=== PATIENT | male | born 1955 | race Caucasian/White ===

== ENCOUNTER → 2021-08-04 | Outpatient (CLI) | payer OTHER ==
--- NOTE | 2021-08-04 08:58 | KCIC ---
EXAM: CT coronary artery calcium screening; radiologist over read. HISTORY: Coronary artery calcium screening. Family history of heart disease. Diabetes. Hyperlipidemia . TECHNIQUE: Computed tomographic images of the chest were obtained without contrast. Multiplanar refor matting was performed. *One or more of the following individualized dose reduction techniques were utilized for this examina tion: 1. Automated exposure control. 2. Adjustment of the mA and/or kV according to patient size. 3. Use of iterative reconstruction technique. COMPARISON: None. FINDINGS: There is cardiomegaly. There is calcified atherosclerotic plaque involving the coronary art eries. There is no lymphadenopathy. There is no pneumothorax or pleural effusion. There is a 3 mm latricia undglass opacity within the lateral right lower lobe. There are 2 mm pleural-based nodular opacities within the lateral right lower lobe. There is a 1 mm pleural-based nodular opacity within the posteri or lateral left lower lobe. There is no acute finding involving the upper abdomen or osseous structur es. Coronary artery calcium score: Left main artery - 0 Left anterior descending - 2690 Left circumflex - 0.9 Right coronary artery - 1149.7 Posterior descending artery - 0 TOTAL = 3040.6 IMPRESSION: 1. Severely calcified atherosclerotic plaque involving the coronary arteries. The coronary artery ivone cium score is 3040.6. There is a large amount of plaque. There is a high risk for a cardiovascular ev ent. 2. Tiny bilateral pulmonary nodules, the largest of which is a 3 mm groundglass nodule within the rig ht lower lobe. These are likely benign. Follow-up can be performed in one year if there are risk fact ors for for neoplasm. Electronically signed by: Salima Rodriguez MD (08/04/2021 8:55 AM) [id number]
== END ==
LOC: KCIC CT 08:10
PROVIDERS: ATTEND Family Medicine
DX: Z13.6 Encounter for screening for cardiovascular disorders (principal); I51.7 Cardiomegaly; I25.10 Atherosclerotic heart disease of native coronary artery without angina pectoris; R91.8 Other nonspecific abnormal finding of lung field
CPT/HCPCS: 75571

== ENCOUNTER 2021-10-17 08:05 | Emergency (ER) | payer OTHER ==
[~2021-10-17] VITALS: Ht 185.4 cm; Wt 94.8 kg
--- NOTE | 2021-10-17 08:26 | PHYS DOC ---
Past Medical History Past Medical History: Hypertension Smoking Status: Never Smoker Alcohol Use: None Drug Use: None General Adult EDM: Chief Complaint: FLU SYMPTOM HPI: HPI: Patient is a 65 year old male who presents with several days of generalized fatigue and malaise. He reports a mild, dry cough. He denies dyspnea. He den ies hemoptysis. He reports he has had greater than 2 months of left-sided chest pain, unchanged today. He reports that it feels dull. No radiation of pain. No dizziness or diaphoresis. No nausea or vomiting. No abdominal pain. He has seen his PCP for this, and he is seeing cardiology this week for this. He denies lower extremity pain or swelling. He denies recent surgery, hospitalization, travel history. He denies having a documented fever. He has had some chills. He has been vaccinated against influenza and Covid, including booster injection. He reports that he just does not feel well. Review of Systems: Review of Systems: Constitutional: Denies fever or chills. [] Eyes: Denies change in visual acuity. [] HENT: Denies nasal congestion or sore throat. [] Respiratory: Reports dry cough. Denies dyspnea. Cardiovascular: Reports unchanged left-sided chest pain, as in HPI. No peripheral edema. GI: Denies abdominal pain, nausea, vomiting, diarrhea : Denies Esequiel symptoms. Musculoskeletal: Denies back pain or joint pain. Does report some diffuse, mi ld myalgias. Integument: Denies rash. [] Neurologic: Denies headache, focal weakness or sensory changes. [] Endocrine: Denies polyuria or polydipsia. [] Lymphatic: Denies swollen glands. [] Psychiatric: Denies depression or anxiety. [] Heart Score: C/O Chest Pain: Yes HEART Score for Chest Pain: HEART Score for Chest Pain Response (Comments) Value History Slighlty/Non-Suspicious 0 ECG Nonspecific Repolarizatio 1 Age >45 - < 65 1 Risk Factors 1 or 2 Risk Factors 1 Troponin < Normal Limit 0 Total 3 Risk Factors: Risk Factors: DM, Current or recent (<one month) smoker, HTN, HLP, family history of CAD, obesity. Risk Scores: Score 0 - 3: 2.5% MACE over next 6 weeks - Discharge Home Score 4 - 6: 20.3% MACE over next 6 weeks - Admit for Clinical Observation Score 7 - 10: 72.7% MACE over next 6 weeks - Early Invasive Strategies Allergies: Allergies: Allergies Coded Allergies Type Severity Reaction Last Updated Verified No Known Drug Allergies 10/17/21 No Physical Exam: PE: Constitutional: Well developed, well nourished, no acute distress, non-toxic appearance. [] HENT: Normocephalic, atraumatic, oropharynx is patent and clear. Mucous membranes are moist. Eyes: PERRL, EOMI, conjunctiva normal, no discharge. Sclera are clear and anicteric. Neck: Normal range of motion, no tenderness, supple, no stridor. No JVD. Trachea is midline Cardiovascular:Heart rate regular rhythm, +2 radial and posterior tibial pulses bilaterally. Lungs & Thorax: Bilateral breath sounds clear to auscultation, no rales, rhonchi or wheezes. Equal chest rise. No evidence of distress. Abdomen: Abdomen soft, nondistended, nontender to palpation. Skin: Warm, dry, no erythema, no rash. [] Back: No deformity, full range of motion. Extremities: No tenderness, no cyanosis, no clubbing, ROM intact, no edema. No calf tenderness. Neurologic: Alert and oriented X 3, normal motor function, normal sensory function, no focal deficits noted. [] Psychologic: Affect normal, judgement normal, mood normal. [] EKG: EKG: EKG is interpreted at 0837 Rhythm is sinus Rate is 76 bpm [place] is left No STEMI Radiology/Procedures: Radiology/Procedures: IMAGING REPORT Signed PATIENT: SILVIA LAUREANO AACCOUNT: [id number] : 1955 LOCATION: ER AGE: 65 SEX: M EXAM STATUS: PRE ER ORD. PHYSICIAN: JAY CAMPUZANO DO REASON: cough, chest pain PROCEDURE: PORTABLE CHEST 1V EXAM: Chest, single view. HISTORY: Cough. Chest pain. COMPARISON: 04/06/2015 FINDINGS: A frontal view of the chest is obtained. There is no infiltrate, pleural effusion or pneumothorax. The heart is normal in size. IMPRESSION: No acute pulmonary finding. Electronically signed by: Salima Cid MD (10/17/2021 9:08 AM) [id number] DICTATED and SIGNED BY: SALIMA CID MD DATE: 10/17/21 [id number] 0 Course & Med Decision Making: Course & Med Decision Making Pertinent Labs and Imaging studies reviewed. (See chart for details) IV fluid normal saline boluses given. He is resting comfortably. He is hemodynamically stable. He is manifesting no evidence of distress. Emergency department work-up is unremarkable for any acute life-threatening process. He has mild hyponatremia, likely from some mild he dehydration. There is no current indication for further invasive exams, imaging or admission at this time, based on current presentation. He reports that he actually had an appointment with cardiology today, but he missed this appointment to come to the ED. This is the second time he has missed the cardiology appointment. I have strongly encouraged him to call them and contact them and reschedule this appointment. I agree that he does need formal cardiology consultation, though there is not appear to be an indication for emergency cardiology consultation at present. He verbalizes understanding. [place] Disclaimer: [place] Disclaimer: This electronic medical record was generated, in whole or in part, using a voice recognition dictation system. Departure Departure Impression: Primary Impression: Malaise and fatigue Additional Impressions: Cough Atypical chest pain Disposition: 01 HOME / SELF CARE / HOMELESS Condition: STABLE Referrals: Abelino MAGAÑA MD (PCP) Patient Instructions: Chest Pain (Nonspecific), Fatigue Additional Instructions: Return to the ER for more severe chest pain, coughing up blood, more severe shortness of breath, uncontrolled vomiting, dehydration, focal weakness, fall, injury or trauma or any other concerns. Please stay well-hydrated. Eat a bland diet. Please contact your director pharmacology to reschedule your appointment. Contact your primary care physician for follow-up as well. Scripts Ondansetron Hcl (ZOFRAN) 4 Mg Tablet 4 MG PO PRN TID PRN for VOMITING, #25 TAB nausea/vomiting Prov: JAY CAMPUZANO DO 10/17/21 JAY CAMPUZANO DO Oct 17, 2021 08:26
[2021-10-17] MEDS ORDERED: IV NORMAL SALINE 1000ML BAG 1,000 ML IV ONE (08:45)
[2021-10-17 09:00] LABS: HEMOGLOBIN 12.1 g/dL (13.0-17.5); RED BLOOD COUNT 4.18 x10^6/uL (4.30-5.70); RED CELL DISTRIBUTION WIDTH 13.9 % (11.5-14.5); WHITE BLOOD COUNT 11.3 x10^3/uL (4.0-11.0)
[2021-10-17 09:09] LABS: CALCIUM 8.3 mg/dL (8.5-10.1); CREATININE 0.6 mg/dL (0.7-1.3); GFR 135.6
--- NOTE | 2021-10-17 09:10 | RAD ---
EXAM: Chest, single view. HISTORY: Cough. Chest pain. COMPARISON: 04/06/2015 FINDINGS: A frontal view of the chest is obtained. There is no infiltrate, pleural effusion or pneumo thorax. The heart is normal in size. IMPRESSION: No acute pulmonary finding. Electronically signed by: Salima Rodriguez MD (10/17/2021 9:08 AM) [id number]
[2021-10-17 09:14] LABS: ALBUMIN 2.8 g/dL (3.4-5.0); ALBUMIN/GLOBULIN RATIO 0.8 (1.0-1.7); PHOSPHORUS 2.9 mg/dL (2.6-4.7); TOTAL BILIRUBIN 0.6 mg/dL (0.2-1.0); TOTAL PROTEIN 6.5 g/dL (6.4-8.2)
--- NOTE | 2021-10-17 09:22 | EKG ---
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
[2021-10-17 10:17] LABS: INFLUENZA A PATIENT NEGATIVE (NEGATIVE); INFLUENZA B PATIENT NEGATIVE (NEGATIVE)
[2021-10-17] MEDS ORDERED: ONDA4TAB7 PO (11:13)
[2021-10-17 11:25] VITALS: BP 166/79
--- NOTE | 2021-10-18 17:06 | NUR ---
IP:Attempted to contact pt concerning covid results. states pt at work. Informed her to have pt call me.
--- NOTE | 2021-10-19 08:28 | NUR ---
IP: Pt returned my call. Informed him of positive covid test and the need to quarantine for 10 days. Pt verbalized understanding.
== END 2021-10-17 11:44 | disposition home or self-care (01) ==
LOC: ER 08:05
DX: R53.81 Other malaise (principal); Z20.822 Contact with and (suspected) exposure to COVID-19; R53.83 Other fatigue; R05.9 Cough, unspecified; R07.89 Other chest pain
CPT/HCPCS: 36415; 71045; 80053; 83690; 83735; 84100; 84484; 85027; 87426; 87804; 93005; 96360; 99285; J7030; U0003; U0005

== ENCOUNTER → 2021-10-23 | Outpatient (CLI) | payer OTHER ==
[2021-10-17 11:25] VITALS: BP 166/79
[~2021-10-23] MED LIST: ONDA4TAB7 PO
--- NOTE | 2021-10-23 09:00 | RAD ---
EXAM: ULTRASOUND SOFT TISSUE NECK CLINICAL HISTORY: Reason: PALPABLE NODULE NECK COMPARISON: None available. TECHNIQUE: Ultrasound examination of the right neck was performed FINDINGS: Submental lymph nodes are identified within the right neck measuring up to 1.4 cm x 0.6 cm. There is normal cortical thickness and fatty hilum identified. Cortical thickness measures up to 3 mm. No cyst ic changes or abscess identified. IMPRESSION: Morphologically normal lymph nodes are identified measuring up to 0.6 cm in short axis within the rama ged right neck. Imaging follow-up could be based on clinical findings or persistent clinical concern if there is lack of resolution. Electronically signed by: Angie Lujan MD (10/23/2021 8:57 AM) [id number]
== END ==
LOC: US 06:28
PROVIDERS: ATTEND Family Medicine
DX: R22.1 Localized swelling, mass and lump, neck (principal)
CPT/HCPCS: 76536

== ENCOUNTER → 2021-11-13 | Outpatient (CLI) | payer OTHER ==
[2021-10-17 11:25] VITALS: BP 166/79
--- NOTE | 2021-11-13 17:07 | CARD ---
MR#: [id number] Date of Study: 11/13/2021 Ordering Physician: Nafisa MAGAÑA, Referring Physician: Nafisa MAGAÑA, Tech: Jami Baez, [facility] APPROVED REPORT EXAM: Two-dimensional and M-mode echocardiogram with Doppler and color Doppler. Other Information Quality : AverageHR: 68bpm INDICATION Fatigue RISK FACTORS Hypertension Diabetes 2D DIMENSIONS Left Atrium(2D)3.3 (1.6-4.0cm)IVSd1.4 (0.7-1.1cm) Aortic Root(2D)3.9 (2.0-3.7cm)LVDd4.4 (3.9-5.9cm) LVOT Diameter2.1 (1.8-2.4cm)PWd1.3 (0.7-1.1cm) LVDs3.4 (2.5-4.0cm)FS (%) 22.8 % SV41.3 mlLVEF(%)46.0 (>50%) Aortic Valve AoV Peak Shawn.122.6cm/sAoV VTI24.3cm AO Peak GR.6.0mmHgLVOT Peak Shawn.101.9cm/s LVOT VTI 23.01cmAO Mean GR.3mmHg ZAID (VMAX)2.52ej9HST (VTI)3.28cm2 Mitral Valve MV E Xqlwejzf40.2cm/sMV DECEL [id number] MV A Ufubxtna58.3cm/sMV E Mean Gr.1mmHg MV WGY45ylU/A Ratio0.7 MVA (PHT)2.54cm2 TDI E/Lateral E'7.1E/Medial E'11.3 Pulmonary Valve PV Peak Twrpyruj27.0cm/sPV Peak Grad.3mmHg Tricuspid Valve TR P. Cwyqnojo793hk/sRAP MIVDSPHU7oyDr TR Peak Gr.05rxYeEOMD02qrUx Pulmonary Vein S1 Fndqsker07.4cm/sD2 Nbwimayt55.3cm/s PVa tljqtupo082cmuw LEFT VENTRICLE The left ventricle is normal size. There is mild to moderate concentric left ventricular hypertrophy. The left ventricular systolic function is normal. The Ejection Fraction is 55-60%. There is normal L V segmental wall motion. Transmitral Doppler flow pattern is Grade I-abnormal relaxation pattern. RIGHT VENTRICLE The right ventricle is normal size. There is normal right ventricular wall thickness. The right ventr icular systolic function is normal. ATRIA The left atrium size is normal. The right atrium is borderline dilated. The interatrial septum is int act with no evidence for an atrial septal defect or patent foramen ovale as noted on 2-D or Doppler i maging. AORTIC VALVE The aortic valve is normal in structure and function. Doppler and Color Flow revealed trace aortic re gurgitation. There is no significant aortic valvular stenosis. Calculated aortic valve area is 2.99 c m2 with maximum pressure gradient of 8 mmHg and mean pressure gradient of 4 mmHg. MITRAL VALVE The mitral valve is normal in structure and function. There is no evidence of mitral valve prolapse. There is no mitral valve stenosis. Doppler and Color-flow revealed trace mitral regurgitation. TRICUSPID VALVE The tricuspid valve is normal in structure and function. Doppler and Color Flow revealed trace tricus pid regurgitation with an estimated PAP of 31 mmHg. There is no tricuspid valve stenosis. PULMONIC VALVE The pulmonary valve is normal in structure and function. Doppler and Color Flow revealed no pulmonic valvular regurgitation. GREAT VESSELS The aortic root is mildly enlarged measuring 4.28 cm. The IVC is normal in size and collapses >50% wi th inspiration. PERICARDIAL EFFUSION There is no evidence of significant pericardial effusion. Critical Notification Critical Value: No <Conclusion> The left ventricular systolic function is normal. The Ejection Fraction is 55-60%. There is normal LV segmental wall motion. Transmitral Doppler flow pattern is Grade I-abnormal relaxation pattern. Trace mitral regurgitation. Trace tricuspid regurgitation with an estimated PAP of 31 mmHg. There is no evidence of significant pericardial effusion. Signed by : Addison Estrada, Electronically Approved : 11/13/2021 17:07:04
== END ==
LOC: ECHO 09:44
PROVIDERS: ATTEND Family Medicine
DX: I51.7 Cardiomegaly (principal); R53.82 Chronic fatigue, unspecified
CPT/HCPCS: 93306

== ENCOUNTER 2021-11-27 06:36 | Outpatient (CLI) | payer OTHER ==
[~2021-11-27] VITALS: Ht 185.4 cm; Wt 91.0 kg
[2021-11-27] VITALS (16 sets, daily range): BP systolic 158–191; BP diastolic 65–87
[2021-11-27] MEDS ORDERED: IODIXANOL 320 MG/ML 100 ML VIAL. ONE ×2 (07:54→09:08)
[2021-11-27] MEDS ORDERED: LIDOCAINE 1% Multi-Dose 20 ML VIAL. ONE (07:54)
[2021-11-27 07:57] LABS: HEMATOCRIT 36.5 % (39.0-53.0); HEMOGLOBIN 12.1 g/dL (13.0-17.5); RED BLOOD COUNT 4.19 x10^6/uL (4.30-5.70); RED CELL DISTRIBUTION WIDTH 15.4 % (11.5-14.5); WHITE BLOOD COUNT 8.5 x10^3/uL (4.0-11.0)
[2021-11-27] MEDS ORDERED: SIMV40TA18 PO (08:00)
[2021-11-27] MEDS ORDERED: INSU100C4 SQ (08:00)
[2021-11-27] MEDS ORDERED: CARV25TA2 PO (08:00)
[2021-11-27] MEDS ORDERED: OXYB5TAB10 PO (08:00)
[2021-11-27] MEDS ORDERED: OMEP20CA16 PO (08:00)
[2021-11-27] MEDS ORDERED: MULT-245 PO (08:00)
[2021-11-27] MEDS ORDERED: FERR-36 PO (08:00)
[2021-11-27] MEDS ORDERED: DULO60CA7 PO (08:00)
[2021-11-27] MEDS ORDERED: ASPI-630 PO (08:00)
[2021-11-27] MEDS ORDERED: INSU100I13 SQ (08:00)
[2021-11-27] MEDS ORDERED: EZET10TA20 PO (08:00)
[2021-11-27] MEDS ORDERED: GABA300C18 PO (08:00)
[2021-11-27] MEDS ORDERED: MIDAZOLAM HCL/PF 5 MG/5 ML VIAL. ONE (08:11)
[2021-11-27] MEDS ORDERED: fentaNYL PF VIAL 100 MCG/2 ML VIAL ONE (08:11)
[2021-11-27 08:14] LABS: PROTHROMBIN TIME PATIENT 11.7 SEC (11.7-14.0)
[2021-11-27 08:19] LABS: CALCIUM 8.4 mg/dL (8.5-10.1); CREATININE 0.8 mg/dL (0.7-1.3); POTASSIUM 4.4 mmol/L (3.5-5.1)
[2021-11-27] MEDS ORDERED: BIVALIRUDIN 250 MG VIAL. IV ONE ×2 (08:59→09:30)
[2021-11-27] MEDS ORDERED: CONTRAST GIVEN. MC PRN (09:00)
[2021-11-27] MEDS ORDERED: MIDAZOLAM HCL/PF 5 MG/5 ML VIAL. IV ONE (09:00)
[2021-11-27] MEDS ORDERED: fentaNYL PF VIAL 100 MCG/2 ML VIAL IV ONE (09:00)
[2021-11-27] MEDS ORDERED: LIDOCAINE 1% Multi-Dose 20 ML VIAL. INJ ONE (09:00)
[2021-11-27] MEDS ORDERED: IODIXANOL 320 MG/ML 100 ML VIAL. IART ONE (09:00)
[2021-11-27] MEDS ORDERED: ADENOSINE 90 MG/30 ML VIAL. IV ONE (09:08)
[2021-11-27] MEDS ORDERED: ASPIRIN 325 MG TABLET PO ONE (09:30)
[2021-11-27] MEDS ORDERED: ADENOSINE 90 MG in IV NORMAL SALINE 50ML 90 ML IV ONE (09:30)
[2021-11-27] MEDS ORDERED: CLOPIDOGREL BISULFATE 75 MG TABLET PO ONE (09:30)
[2021-11-27] MEDS ORDERED: CLOPIDOGREL BISULFATE 75 MG TABLET ONE (09:31)
[2021-11-27] MEDS ORDERED: ASPIRIN 325 MG TABLET ONE (09:31)
--- NOTE | 2021-11-27 09:47 | PDOC ---
MODERATE SEDATION ASSESSMENT RISKS/ALTERNATIVES Risks/Alternatives Risks and alternatives of this type of sedation and procedure discussed with: RISK/ALTERNATIVES: Patient H & P ON CHART H & P H & P on chart and reviewed for co-morbid conditions and appropriate labs. H&P ON CHART: Yes STATUS PREG STATUS ASSESSED: N/A MEDS/ALLERGIES REVIEWED Meds/Allergies Reviewed Medications and Allergies including time and route of recently administered narcotics and sedatives. MEDS/ALLERGIES REVIEWED: Yes ASA RATING ASA RATING: III AIRWAY ASSESSMENT Airway Assessment Airway patency, oral function limitations, presence of caps, crowns, dentures, partials, and ability to extend neck assessed. AIRWAY ASSESSMENT: Yes MALLAMPATI SCORE MALLAMPATI SCORE: II PRE-SEDATION ASSESSMENT PRE-SEDATION ASSESSMENT: Yes EDITH HUERTA MD Nov 27, 2021 09:47
[2021-11-27] MEDS ORDERED: NITROGLYCERIN SUBLINGUAL 0.4 MG BOTTLE OF 25. SL PRN (10:00)
[2021-11-27] MEDS ORDERED: ACETAMINOPHEN 325 MG TABLET. PO PRN (10:00)
--- NOTE | 2021-11-27 10:12 | CARD ---
MR#: [id number] Date of Study: 11/27/2021 Ordering Physician: EDITH ESTRADA, Referring Physician: EDITH ESTRADA Tech: RT Michelle(R) APPROVED REPORT Technologist: RT Michelle(R) Nurse: Divya Sanders RN Procedure(s) performed: 1. Right and left heart catheterization and selective coronary angiography 2. Instantaneous wave free ratio (IFR) and fractional flow reserve (FFR) measurement to left anterio r descending artery stenosis 3. Successful PCI/drug-eluting stent placement to the left circumflex artery MODERATE SEDATION TIME: 82 MINS FLUORO TIME: 8.7 MIN DOSE: 95.8 GYCM2 CONTRAST: 159CC VISI INDICATION The indication(s) include : Refractory dyspnea on minor exertion and chest pressure concerning for un stable angina. [facility] Clinical Frailty Scale [facility] Clinical Frailty Scale: Managing Well Heart Failure Heart Failure: No CASE TECHNIQUE IV conscious sedation was used throughout procedure with appropriate monitoring and was performed in the presence of a registered nurse who was an independent trained observer other than the physician p erforming the procedure. During this case, Fluoroscopy and low osmolar contrast were used for imaging . Specimen(s) Removed: No Estimated Blood loss: 20 cc's. PROCEDURE NARRATIVE After explaining the risk, benefits and alternative options, informed consent was obtained from patie nt. Patient was brought to the cardiac Pan [employer]ulcan[employer] Helper and his right groin was prepped and draped in the us ual fashion. 20 cc of 2% lidocaine was infiltrated into the skin and subcutaneous tissues for local anesthesia. Arterial and venous accesses were obtained in the right common femoral artery and vein r espectively and 6 and 8 Israeli sheaths inserted. A 7.5 Israeli [place] catheter was then advanced u nder fluoroscopic guidance and intracardiac pressures, oxygen saturations and cardiac output by Oral method measured. Subsequently, 6 Israeli JL4 and 6 Israeli JR4 catheters were used to perform selectiv e angiography of the left and right coronary arteries. LVEDP and transaortic gradients were measured . Left ventriculography was not performed due to contrast used for intervention and availability of recent 2D echo that showed LVEF 55%. Since patient was found to have angiographically borderline significant stenosis involving the left a nterior ascending artery, a decision was made to assess the physiologic significance using instantane ous wave free ratio (IFR) measurement. The left main coronary artery was engaged with a 6 Israeli XB 3.5 guide catheter and the stenosis in the mid to distal segment of the left anterior descending sangeeta ry was crossed with a [employer] pressure wire. iFR measurement was made there was borderline significant at 0.89 and 0.90. Hence we decided to evaluate this further with fractional flow reserve (FFR) measurement. Patient was given intravenous adenosine infusion per protocol and FFR was measur ed which came back insignificant at 0.86. Hence no intervention was performed on the LAD stenosis. FINDINGS A. RUGHT HEART CATHETERIZATION 1. Intracardiac pressures: Mean right atrial pressure 4 mmHg, right ventricular pressure 28/2 mmHg, pulmonary artery pressure 27/7 mmHg, mean pulmonary capillary wedge pressure 15 mmHg. No significant pulmonary hypertension noted. 2. Oxygen saturations: Right atrium 75.9%, pulmonary artery 72.8%, femoral arterial sheath 96%. No evidence of intracardiac shunt. 3. Cardiac output by Oral method 6.7 L/min. B. LEFT HEART CATHETERIZATION 1. Hemodynamics: Left ventricular end-diastolic pressure 16 mmHg. No pullback gradient across aorti c valve. 2. Coronary angiography: a. The left main coronary artery arose from the left sinus of Valsalva, gave rise to the left anteri or descending and left circumflex arteries and did not show any significant stenosis. b. The left anterior descending artery showed 50 to 60% stenosis involving the mid to distal segment that was physiologically insignificant based on FFR measurement of 0.86. c. The left circumflex artery showed 80% stenosis in the proximal segment. d. The right coronary artery was a large and dominant vessel arising from the right sinus of Valsalv a that did not show any significant stenosis. INTERVENTION The left main coronary artery was engaged with 6 Israeli XB 3.5 guide catheter. The stenosis in the p roximal segment of the left circumflex artery was crossed with the pressure wire was used to perform FFR measurement on LAD. The lesion was then predilated with a 3.0 x 15 mm Euphora balloon following which it was successfully treated with 3.0 x 16 mm [employer] Promus Elite drug-eluting stent. Follow-up angiography showed resolution of the stenosis to 0% with KARLA-3 distal flow. Patient christiano erated the procedure well. Hemostasis was achieved using Mynx closure device and manual compression. There were no immediate complications KARLA Flow KARLA Flow (Pre-Intervention): KARLA-3 KARLA Flow (Post-Intervention): KARLA-3 Conclusion 1. Two-vessel coronary artery disease. 80% stenosis involving the left circumflex artery. 50 to 60 % stenosis involving the left anterior descending artery that was physiologically insignificant based on FFR measurement of 0.86. 2. Successful PCI/drug-eluting stent placement to the left circumflex artery. 3. No significant pulmonary hypertension, no evidence of intracardiac shunt. Recommendations 1. Aspirin 325 mg daily for 1 month followed by 81 mg daily 2. Plavix 75 mg daily 3. Cardiovascular risk factor modification Signed by : Edith Estrada, Electronically Approved : 11/27/2021 10:12:21
[2021-11-27] MEDS ORDERED: IV 1/2 NORMAL SALINE 1,000 ML IV SCH (11:00)
[2021-11-27] MEDS ORDERED: CLOP75TA PO (13:40)
--- NOTE | 2021-11-27 14:06 | NUR ---
Discharge Note: SILVIA LAURENAO ACCLeticia Discharge instructions and discharge home medications reviewed with Patient and daughter and a copy given. All questions have been answered and understanding verbalized. The following instructions and handouts were given: Moderate sedation, groin site care, and plavix information. Discontinued lines and drains: Left hand IV dc'd, tip intact, and bandage applied. Patient discharged to home with daughter via personal vehicle.
[2021-11-27] MEDS ORDERED: ATORVASTATIN CALCIUM 40 MG TABLET. PO SCH (21:00)
[2021-11-28] MEDS ORDERED: ASPIRIN ENTERIC COATED 325 MG TABLET.DR. PO SCH (08:00)
[2021-11-28] MEDS ORDERED: CLOPIDOGREL BISULFATE 75 MG TABLET PO SCH (08:00)
== END 2021-11-27 14:20 | disposition home or self-care (01) ==
LOC: CCL 06:36
PROVIDERS: ATTEND Internal Medicine Cardiovascular Disease
DX: R06.09 Other forms of dyspnea (principal); I25.110 Atherosclerotic heart disease of native coronary artery with unstable angina pectoris; I10 Essential (primary) hypertension; E78.00 Pure hypercholesterolemia, unspecified; E11.9 Type 2 diabetes mellitus without complications; K21.9 Gastro-esophageal reflux disease without esophagitis; M19.90 Unspecified osteoarthritis, unspecified site; F32.9 Major depressive disorder, single episode, unspecified; N40.0 Benign prostatic hyperplasia without lower urinary tract symptoms; Z79.82 Long term (current) use of aspirin; Z79.4 Long term (current) use of insulin; Z79.899 Other long term (current) drug therapy; Z98.890 Other specified postprocedural states
CPT/HCPCS: 36415; 80048; 85027; 85610; 93460; 93571; 99152; 99153; C1725; C1760; C1769; C1773; C1874; C1887; C1894; C9600; J0153; J0583; J1644; J2250; J3010; J3490; Q9967; 92928; G0269

== ENCOUNTER 2022-03-02 09:08 | Day surgery (SDC) | payer OTHER ==
[~2022-03-02] VITALS: Ht 185.4 cm; Wt 91.0 kg
[~2022-03-02 09:08] MED LIST changes: +ASPI-630 PO; +CARV25TA2 PO; +CIPROFLOXACIN 0.3% OPHTH SOLUTION 5ML BOTTLE. OS ONE; +CLOP75TA PO; +DULO60CA7 PO; +EZET10TA20 PO; +FERR-36 PO; +GABA300C18 PO; +HYDROmorphone 2 MG/ML INJ. IVP PRN; +INSU100C4 SQ; +INSU100I13 SQ; +IV RINGERS,LACTATED 1000ML 1,000 ML IV SCH; +LIDOCAINE 2% JELLY 6ML IN APPLICATOR. OS ONE; +MORPHINE SULFATE 2 MG/ML INJ. IVP PRN; +MULT-245 PO; +OMEP20CA16 PO; +OXYB5TAB10 PO; +PROCHLORPERAZINE 10 MG/2 ML VIAL. IVP PRN; +PROPARACAINE 0.5% OPHTH SOLUTION 15ML BOTTLE. OS ONE; +SIMV40TA18 PO; +fentaNYL PF VIAL 100 MCG/2 ML VIAL IVP PRN
[2022-03-02] MEDS ORDERED: CHONDROIT-SOD-HYALURONATE KIT. ONE (09:37)
[2022-03-02] MEDS ORDERED: LIDOCAINE 1%/PHENYLEPH 1.5% PF OPHTH 1 ML VIAL. ONE (09:37)
[2022-03-02] MEDS ORDERED: CHONDROITIN-SOD-HYALURONATE 0.5 ML DISP.SYRIN. ONE (09:37)
[2022-03-02] MEDS ORDERED: NEO/POLYMYX/DEXAMETH OPHTH OINTMENT 3.5GM TUBE. ONE (09:37)
[2022-03-02 09:51] VITALS: BP 170/86
[2022-03-02] MEDS ORDERED: INSULIN LISPRO 100 UNIT/ML 3ML VIAL for OP,RR ONLY. SQ PRN (10:00)
[2022-03-02] MEDS: CYCLOPENTOLATE 1% OPHTH SOLUTION 2ML BOTTLE. OS SCH ×2 (10:03→10:12)
[2022-03-02] MEDS: PHENYLEPHRINE 10% OPHTH SOLUTION 5ML BOTTLE. OS SCH ×2 (10:03→10:12)
[2022-03-02] MEDS ORDERED: acetaZOLAMIDE 250 MG TABLET. PO ONE (11:45)
--- NOTE | 2022-03-02 12:24 | OP ---
DATE OF SURGERY: 03/02/2022 ABORTED OPERATIVE REPORT Please note that once the patient had been prepped and the microscope brought into the field that once the paracentesis was performed followed by instillation of the preservative-free phenylephrine admixed with lidocaine, the foot pedal was not functioning. The preoperative protocol was followed and the decision was made not to proceed with the surgery without surgeon control of the microscope. Therefore, since no further incisions were made and the paracentesis was perfectly sealed, the drape was removed and Maxitrol was placed on the eye and the patient was sent to the recovery room to follow up another date once the equipment was functioning optimally. The patient was asked to use his antibiotic drops for the next 2 days and the surgery will be done at a later time once the microscope is functional. AMBERLY DR: Emma TID: [id number]
== END 2022-03-02 12:29 | disposition home or self-care (01) ==
LOC: SURG 09:08
PROVIDERS: ATTEND Ophthalmology
DX: E11.36 Type 2 diabetes mellitus with diabetic cataract (principal); Z53.8 Procedure and treatment not carried out for other reasons; H25.89 Other age-related cataract; I10 Essential (primary) hypertension; E78.00 Pure hypercholesterolemia, unspecified; K21.9 Gastro-esophageal reflux disease without esophagitis; F32.9 Major depressive disorder, single episode, unspecified; M19.90 Unspecified osteoarthritis, unspecified site; N40.0 Benign prostatic hyperplasia without lower urinary tract symptoms; Z79.82 Long term (current) use of aspirin; Z79.4 Long term (current) use of insulin; Z79.899 Other long term (current) drug therapy; Z98.890 Other specified postprocedural states
CPT/HCPCS: 82962; J0171; J0690; J1580; J3490

== ENCOUNTER 2022-03-09 10:46 | Day surgery (SDC) | payer OTHER, MEDICARE ==
[~2022-03-09] VITALS: Ht 185.4 cm; Wt 91.0 kg
[~2022-03-09 10:46] MED LIST changes: +CHONDROIT-SOD-HYALURONATE KIT. ONE; +CHONDROITIN-SOD-HYALURONATE 0.5 ML DISP.SYRIN. ONE; -HYDROmorphone 2 MG/ML INJ. IVP PRN; -IV RINGERS,LACTATED 1000ML 1,000 ML IV SCH; +LIDOCAINE 1%/PHENYLEPH 1.5% PF OPHTH 1 ML VIAL. ONE; -MORPHINE SULFATE 2 MG/ML INJ. IVP PRN; +NEO/POLYMYX/DEXAMETH OPHTH OINTMENT 3.5GM TUBE. ONE; -PROCHLORPERAZINE 10 MG/2 ML VIAL. IVP PRN; -fentaNYL PF VIAL 100 MCG/2 ML VIAL IVP PRN
[2022-03-09] MEDS ORDERED: acetaZOLAMIDE 250 MG TABLET. PO ONE ×2 (11:00→11:45)
[2022-03-09 11:21] VITALS: BP 135/72
[2022-03-09] MEDS: CYCLOPENTOLATE 1% OPHTH SOLUTION 2ML BOTTLE. OS SCH ×3 (11:25→11:47)
[2022-03-09] MEDS: PHENYLEPHRINE 10% OPHTH SOLUTION 5ML BOTTLE. OS SCH ×3 (11:27→11:40)
[2022-03-09 12:51] VITALS: BP 151/76
--- NOTE | 2022-03-09 14:43 | OP ---
DATE OF SURGERY: 03/09/2022 PREOPERATIVE DIAGNOSES: 1. Cataract of the left eye. 2. Miosis of the left eye. 3. Open angle glaucoma of the left eye. 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 PROCEDURES: 1. Cataract surgery with posterior chamber intraocular lens implantation with pupil stretching. 2. [place] dual blade goniotomy of the left eye. DESCRIPTION OF PROCEDURE: The left eye was prepped with Betadine in the usual sterile fashion and draped. A paracentesis was performed followed by instillation of preservative-free phenylephrine admixed with balanced salt solution. A temporal clear corneal incision was made and Viscoat was injected into the anterior chamber. This did result in approximately a 5 mm pupil for which the capsulorrhexis margin was made larger than the pupillary opening. Prior to the nucleus removal the head and microscope were repositioned to visualize the anterior chamber angle and the [place] dual blade was used to excise the trabecular meshwork in the inferior nasal quadrant for approximately 2 clock hours. Hydrodissection was carried out and the phacoemulsification handpiece was used to remove the nucleus in a modified stop and chop fashion. Following the nucleus removal, the I/A handpiece was used to remove the cortex and Provisc was injected in the anterior chamber and an Willy model [id number] with a power of 13.0 diopters was placed into the capsular bag. Due to the fact that the pupil was constricted and visualization of the capsulorrhexis margin was not available the collar button hook was used to ensure that the lens was within the capsular bag. Balanced salt solution was used to hydrate the corneal wounds and the viscoelastic evacuated with the I/A handpiece. Once no leak was noted, Maxitrol was placed on the eye and the eye shielded and the patient was sent to the recovery room uneventfully. MOOSE DR: Emma TID: [id number]
== END 2022-03-09 13:08 | disposition home or self-care (01) ==
LOC: SURG 10:46
PROVIDERS: ATTEND Ophthalmology
DX: E11.36 Type 2 diabetes mellitus with diabetic cataract (principal); E11.39 Type 2 diabetes mellitus with other diabetic ophthalmic complication; H57.03 Miosis; H42 Glaucoma in diseases classified elsewhere; H25.89 Other age-related cataract; I10 Essential (primary) hypertension; E78.00 Pure hypercholesterolemia, unspecified; N40.0 Benign prostatic hyperplasia without lower urinary tract symptoms; M19.90 Unspecified osteoarthritis, unspecified site; F32.9 Major depressive disorder, single episode, unspecified; K21.9 Gastro-esophageal reflux disease without esophagitis; Z79.4 Long term (current) use of insulin; Z79.899 Other long term (current) drug therapy; Z98.890 Other specified postprocedural states
CPT/HCPCS: 65820; 66982; A4930; J0171; J0690; J1580; J3490; V2632; A4452

== ENCOUNTER → 2022-03-16 | Day surgery (SDC) | payer OTHER ==
[~2022-03-16] VITALS: Ht 185.4 cm; Wt 91.0 kg
[~2022-03-16] MED LIST changes: +BALANCED SALT IRRIG OPHTH SOLN 15 ML BOTTLE. ONE; +CIPROFLOXACIN 0.3% OPHTH SOLUTION 5ML BOTTLE. OD ONE; -CIPROFLOXACIN 0.3% OPHTH SOLUTION 5ML BOTTLE. OS ONE; +INSULIN LISPRO 100 UNIT/ML 3ML VIAL for OP,RR ONLY. SQ ONE; +INSULIN LISPRO 100 UNIT/ML 3ML VIAL for OP,RR ONLY. SQ PRN; +IV RINGERS,LACTATED 1000ML 1,000 ML IV SCH; +LIDOCAINE 2% JELLY 6ML IN APPLICATOR. OD ONE; +LIDOCAINE 2% JELLY 6ML IN APPLICATOR. ONE; -LIDOCAINE 2% JELLY 6ML IN APPLICATOR. OS ONE; +PROPARACAINE 0.5% OPHTH SOLUTION 15ML BOTTLE. OD ONE; -PROPARACAINE 0.5% OPHTH SOLUTION 15ML BOTTLE. OS ONE; +TRYPAN BLUE 0.06% INTRAOCULAR 0.5 ML SYRINGE. ONE; +acetaZOLAMIDE 250 MG TABLET. PO ONE
[2022-03-16 07:39] VITALS: BP 184/84
[2022-03-16] MEDS: PHENYLEPHRINE 10% OPHTH SOLUTION 5ML BOTTLE. OD SCH ×3 (07:53→08:04)
[2022-03-16] MEDS: CYCLOPENTOLATE 1% OPHTH SOLUTION 2ML BOTTLE. OD SCH ×3 (07:54→08:04)
[2022-03-16 09:54] VITALS: BP 137/83
--- NOTE | 2022-03-16 10:21 | OP ---
DATE OF SURGERY: 03/16/2022 PREOPERATIVE DIAGNOSES: 1. Open-angle glaucoma of the right eye. 2. Miosis of the right eye. 3. Cataract of the right eye. PROCEDURES: 1. Phacoemulsification with posterior chamber intraocular lens implantation with pupil stretching. 2. [place] dual blade goniotomy. DESCRIPTION OF PROCEDURE: The right eye was prepped with Betadine in the usual sterile fashion and draped. A paracentesis was performed followed by instillation of preservative-free phenylephrine admixed with balanced salt solution and lidocaine. The pupil was adequately dilated to perform a capsulorrhexis. Therefore, after the temporal clear corneal incision and placement of the Viscoat, this was done uneventfully to the pupillary margin. The head and microscope were then repositioned and the nasal angle was excised with a [place] dual blade of the trabecular meshwork for approximately 2-3 clock hours. The head and microscope were repositioned, followed by hydrodissection. The phacoemulsification handpiece was used to remove the nucleus in a modified stop and chop fashion. The I/A handpiece was used to remove the cortex. There was significant posterior pressure with anterior displacement of the posterior capsule; therefore, significant Viscoat was used to displace the capsule posteriorly. The lens was then placed within the capsular bag, which was a power of 12.5 Willy model [id number]. Balanced salt solution was used to hydrate the corneal wounds and due to the fact that the lens could not be verified within the bag, a nasal paracentesis was made and the hook was used to sweep the iris and the nasal margins to ensure that the lens was within the bag. Once this had been confirmed, the viscoelastic was evacuated with the I/A handpiece and once no leak was noted, Maxitrol was placed on the eye and the eye shielded and the patient was sent to the recovery room uneventfully. ELIZABETH HELTON: Emma TID: [id number]
== END | disposition home or self-care (01) ==
LOC: SURG 07:07
PROVIDERS: ATTEND Ophthalmology
DX: E11.36 Type 2 diabetes mellitus with diabetic cataract (principal); E11.39 Type 2 diabetes mellitus with other diabetic ophthalmic complication; H40.10X0 Unspecified open-angle glaucoma, stage unspecified; H42 Glaucoma in diseases classified elsewhere; H25.89 Other age-related cataract; H57.03 Miosis; I10 Essential (primary) hypertension; E78.00 Pure hypercholesterolemia, unspecified; K21.9 Gastro-esophageal reflux disease without esophagitis; F32.9 Major depressive disorder, single episode, unspecified; M19.90 Unspecified osteoarthritis, unspecified site; N40.0 Benign prostatic hyperplasia without lower urinary tract symptoms; Z79.4 Long term (current) use of insulin; Z79.899 Other long term (current) drug therapy; Z98.890 Other specified postprocedural states
CPT/HCPCS: 65820; 66982; 82962; J0171; J0690; J1580; J3490; A4930; J1815; V2632